=== PATIENT | male | born 1975 | race Caucasian/White ===

== ENCOUNTER 2024-12-25 | Emergency (ER) | payer BC, SELFPAY ==
--- OUTSIDE RECORDS SUMMARY | 2024-12-25 00:02 | XMS_ITS | Clinical Summary ---
Author Organization [facility] Address [address] [place] [id number] Care Team Providers Care Cop Breaker Name Role Phone Abhi Scott MD Primary Care Provider Kiara Perez MD Unavailable [phone] Olena Krueger NP Unavailable Allergies No known active allergies Medications ibuprofen (ADVIL; MOTRIN) 200 mg tablet Take 600 mg by mouth every 6 hours if needed. Active Insulin [place], Disposable, (BD INSULIN PEN NEEDLE UF MINI) 31 gauge x 3/16Indications :Uncontrolled type 2 diabetes mellitus with hyperglycemia, without long-term current use of insulin (HC) For administering insulin at home. 1 box 09/15/19 18 Active blood-glucose meterIndications :Uncontrolled type 2 diabetes mellitus with hyperglycemia, without long-term current use of insulin (HC) Dispense test strips, lancets covered by pt ins. E11.65 IDDM type II, uncontrolled - Test 4 times/day. Reason: High A1C. Given meter in [facility]. Ok to get meter if needs different kind for insurance preference. 1 Device 09/15/19 18 Active NOVOLIN 70/30 U-100 INSULIN 100 unit/mL (70-30) injectionIndicat ions:Diabetic ketoacidosis without coma associated with diabetes mellitus due to underlying condition (HC) INJECT 15 TO 30 UNITS SUBCUTANEOUSLY TWICE DAILY BEFORE MEALS 30 mL 04/11/20 18 Active insulin syringe-needle U-100 1/2 mL 31 gauge x 15/64 syrgIndications: Diabetic ketoacidosis without coma associated with diabetes mellitus due to underlying condition (HC) DIRECTED 200 Syringe 3 06/11/20 18 Active blood sugar diagnostic (ACCU-CHEK ELE PLUS TEST STRP) stripIndications :Controlled type 2 diabetes mellitus with complication, with long-term current use of insulin (HC) Dispense product covered by insurance. Test 4 times daily. E 11.8. Type 2 diabetes mellitus 400 Strip 3 11/27/19 19 Active Insulin Syringe-Needle U-100 0.5 mL 31 gauge x 01/16Indications :Controlled type 2 diabetes mellitus with complication, with long-term current use of insulin (HC) USE DIRECTED 1 box 11 07/27/20 19 Active apixaban (ELIQUIS) 5 mg tabletIndication s:Splenic infarct Take 1 Tablet (5 mg) by mouth two times daily. 60 Tablet 1 11/14/19 23 Active Active Problems Problem Noted Date Diagnosed Date Pseudocyst of pancreas 03/19/2017 Alcohol-induced acute pancre atitis without infection or necrosis 03/18/2017 Tobacco dependence 03/18/2017 Alcohol abuse 08/10/2016 Generalized anxiety disorder 05/14/2012 Major depression, single episode 06/08/2011 Resolved Problems Problem Noted Date Diagnosed Date Resolved Date Diabetic ketoacidosis withou t coma associated with type 2 diabetes mellitus 09/13/2017 10/07/2022 Hypokalemia 03/20/2017 09/13/2017 Idiopathic acute pancreatiti s without infection or necrosis 08/09/2016 09/13/2017 Other and unspecified alcoho l dependence, unspecified drinking behavior 05/14/2012 08/10/2016 Immunizations Immunization Administration Dates Next Due HIB PRP-OMP (PedvaxHIB) 10/06/2022 Influenza, IIV3 (Age 6-35 mos) 06/13/2010 MENINGOCOCCAL VACCINE 2 VIAL 2MO-55YO (MENVEO) 0 10/06/2022 Meningococcal B 10/06/2022 Pneumococcal Conj 20-valent (Prevnar 20) 023 Family History Medical History Relation Name Comments Diabetes Father Relation Name Status Comments Father Social History Tobacco Use Types Packs/Day Years Used Date Smoking Tobacco: Every Day Cigarettes 0.5 10 Smokeless Tobacco: Never Tobacco Cessation:Ready to Q uit: No; Counseling Given: Yes Comments:cutting down Alcohol Use Standard Drinks/Week Comments Yes 0 (1 standard drink = 0.6 oz pur e alcohol) 12 beers a day PHQ-2 Answer Date Recorded PHQ-2 TOTAL SCORE 0 10/06/2022 Social Connections Answer Date Recorded Frequency of Communication with Friends and Fami ly Not on file 09/18/2022 Financial Resource Strain Answer Date R ecorded Difficulty of Paying Living Expenses Not on file 09/03/2021 Difficulty of Paying Living Expenses Not on file 09/03/2021 Sex and Gender Information Value Date Recorded Sex Assigned at Not on file Legal Sex Male 7:04 AM PUMP OILER Gender Identity Not on file Sexual Orientation Not on file 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 Not on file Not on file Obstetrics History Last Filed Vital Signs Vital Sign Reading Time Taken Comments Blood Pressure 138/80 10/06/2022 11:23 AM PUMP OILER Pulse 88 10/06/2022 11:23 AM PUMP OILER Temperature 37.1 C (98.7 F) 10/06/2022 11:23 AM PUMP OILER Respiratory Rate 20 10/06/2022 11:23 AM PUMP OILER Oxygen Saturation 99% 2022 10:19 AM PUMP OILER Inhaled Oxygen Concentration - - Weight 73 kg (161 lb) 10/06/2022 11:23 AM PUMP OILER Height 180.3 cm (5' 11) 09/25/2022 3:24 PM PUMP OILER Body Mass Index 22.45 09/25/2022 3:24 PM PUMP OILER Plan of Treatment Health Maintenance Due Date Last Done Comments Tdap 1986 HIV for age 15-65 1990 Tetanus booster 1995 Colonoscopy through age 75 2020 Lipids for age 45-75 2020 BMI (ht and wt on same day) for age 18+ 09/25/2023 09/25/2022, 09/18/2022, 09/20/2017, Additional history exists Depression screening for age 12+ 10/06/2023 10/06/19, 11/01/2017 COVID-19 vaccine series ( season) 2024 06/23/2021, 06/01/2021 Influenza Vaccine (Season Ended) 2025 06/13/20 10 Hepatitis C screening for ag e 18-79 Completed 01/28/2010 Pneumococcal series for age 6-49 Completed 10/06/19 23 Procedures Procedure Name Priority Date/Time Associated Diagnosis Comments ANTI HCV Routine 01/28/2010 3:36 PM CDT Alcoholic gastritis without mention of hemorrhage from Last 3 Months or Most Recently Relevant to Health Maintenance Results * ANTI HCV (01/28/2010 3:36 PM CDT) ANTI HCV Non-reacti ve [facility] Blood specimen (specimen) BLOOD SPECIMEN / Unknown 01/28/2010 3:36 PM CDT 01/28/2010 3:28 PM CDT us Olena Vázquez MD SEND OUTS Final Result [facility] [place]NAL ZIP [id number] [address] from Last 3 Months or Most Recently Relevant to Health Maintenance Insurance [facility] Advance Directives * Full Code (Latest Code Status on File) Date Activated Date Inactivated Comments 09/13/2017 4:45 PM 09/15/2017 12:47 PM Question Answer Comments Code Status Discussion: Per Existing Order * Full Code Date Activated Date Inactivated Comments 03/18/2017 3:36 PM 03/20/2017 3:50 PM Question Answer Comments Code Status Discussion: Not Discussed * Full Code Date Activated Date Inactivated Comments 03/18/2017 1:36 PM 03/18/2017 3:36 PM Question Answer Comments Code Status Discussion: Discussed * Full Code Date Activated Date Inactivated Comments 08/09/2016 3:38 PM 08/12/2016 5:49 PM Question Answer Comments Code Status Discussion: Discussed Care Teams Cop Breaker Relationship Specialty Start Date End Date Abhi Scott MD [address] [facility] [place] [address] PCP - General Family Practice 09/15/17 Kiara Perez MD [address] [place] [address] Medical Oncologist Hematology and Oncology 09/27/22 Olena Krueger NP [address] [facility] [place] [id number] Nurse Practitioner Hematology and Oncology 09/27/22
[2024-12-25 00:06] VITALS: BP 190/100; PULSE 100; RESP 18; TEMP 36.8; O2SAT 99; BMI 23.7
[2024-12-25] MEDS: TETANUS-DIPHTHERIA TOXOIDS/PF 0.5 ML SYRINGE IM (00:46)
[2024-12-25 00:52] VITALS: BP 175/95; PULSE 91; RESP 18; TEMP 36.8; O2SAT 99
--- NOTE | 2024-12-25 00:54 | ED_ITS ---
HPI - General Adult General Chief complaint: Laceration/Wound Stated complaint: cut left middle finger Time Seen by Provider: 12/25/24 00:16 Source: patient Mode of arrival: ambulatory Limitations: no limitations History of Present Illness HPI narrative: 49-year-old male presents to the ED about an hour after he cut his finger on a glass rim of a candle trying to snuff in out. Unknown last tetanus shot. Tried applying pressure but the bleeding will not stop. Left 4th finger along the PIP palmar side. No difficulty moving finger, no loss of sensation. Does not take anticoagulants. Did not try any other interventions prior to coming to ED. Reports benign past medical history. No long-term medications, no allergies. ROS is notable for no other hematological, generalized, musculoskeletal or skin changes. Related Data Allergies Allergy/AdvReac Type Severity Reaction Status Date / Time No Known Drug Allergies Allergy Verified 12/25/24 00:09 [facility] Medical History Type 2 diabetes mellitus ?E11.9 - Type 2 diabetes mellitus without complications (ICD-10) Social History Smoking Status: Current every day smoker Second hand tobacco smoke exposure: No How often do you have a drink containing alcohol: 4 or more times a week How often do you have six or more drinks on one occasion: Daily or almost daily AUDIT-C Alcohol total score: 8 Non-prescribed substance use: denies use Exam Const: Vital Signs, click to edit/add: Vital Signs - 24 hr 12/25/24 00:06 12/25/24 00:52 Temperature 98.2 F 98.2 F Pulse Rate [Right Pulse Oximeter] 100 91 Respiratory Rate 18 18 Blood Pressure [Ri ght Upper Arm] 190/100 H 175/95 H Pulse Oximetry 99 99 Oxygen Delivery Me thod Room Air Room Air Documenting provider has reviewed patient's vital signs: yes Common normals: no apparent distress General appearance: cooperative and well kempt HENMT: Common normals: normocephalic Head and scalp: normocephalic Face and sinus: normal facial exam Eye: Common normals: conjunctivae normal General eye: normal appearance of both eyes Conjunctiva: conjunctiva(e) normal Resp: Common normals: normal respiratory effort Effort & inspection: able to speak in complete sentences Extremity: Other: Left wrist with normal range of motion. Hand move normally with no focal deficits. 1.5 cm wide by 1 cm tall parched area of laceration along left 4th finger palmar side PIP. Active bleeding noted. Flap style laceration, depth is into the muscular layer. No other fingers affected. Psych: Appearance: well kempt Attitude: engaged Activity/motor behavior: appropriate eye contact Skin: Narrative: Other than the laceration to the 4th finger, no other areas of injury noted. Course Course ED Course: 49-year-old male with laceration to left 4th finger. Overdue for tetanus, nothing was seen and state registry. TD updated tonight. Counseled patient that I could use Steri-Strips or glue but unfortunately because of his bleeding and across the joint these are unlikely to be successful. He then agreed to stitches. Verbal consent obtained. Procedure: Laceration repair; Area was cleansed with alcohol wipe, no signs of foreign body noted. Injected with 3 mL of 1% lidocaine without epinephrine with good anesthesia. A total of 6 simple interrupted 4-0 Ethilon sutures were placed along the length of the arch with good closure. Hemostatic following repair. Covered in antibiotic ointment, gauze wrap. Given a splint to wear at work for the next 24 hours, instructed on wound care. Counseled on Tylenol and ibuprofen as needed for discomfort, alarm symptoms reviewed that would warrant ED presentation. Patient verbalizes understanding and agreement. Vital Signs Vital signs: Initial Vital Signs Temperature 98.2 F 12/25/24 00:06 Temperature Source Temporal Artery Scan 12/25/24 00:06 Pulse Rate 100 12/25/24 00:06 Respiratory Rate 18 12/25/24 00:06 Blood Pressure 190/100 H 12/25/24 00:06 Blood Pressure Mean 130 H 12/25/24 00:06 Blood Pressure Position Sitting 12/25/24 00:06 Pulse Oximetry 99 12/25/24 00:06 Oxygen Delivery Method Room Air 12/25/24 00:06 Vital Signs Temperature 98.2 F 12/25/24 00:06 Pulse Rate 100 12/25/24 00:06 Respiratory Rate 18 12/25/24 00:06 Blood Pressure 190/100 H 12/25/24 00:06 Pulse Oximetry 99 12/25/24 00:06 Oxygen Delivery Method Room Air 12/25/24 00:06 Temperature 98.2 F 12/25/24 00:52 Pulse Rate 91 12/25/24 00:52 Respiratory Rate 18 12/25/24 00:52 Blood Pressure 175/95 H 12/25/24 00:52 Pulse Oximetry 99 12/25/24 00:52 Oxygen Delivery Method Room Air 12/25/24 00:52 Medications Administered Medications: Generic Name Dose Route Start Last Admin Trade Name Radha PRN Reason Stop Dose Admin Tetanus/Diphtheria Toxoids Adsorbed 0.5 ml 12/25/24 00:42 12/25/24 00:46 Tetanus-Diphtheria Toxoids/Pf 0.5 Ml Syringe IM 12/25/24 00:43 0.5 ml .ONCE ONE Administration Discharge Plan Discharge Clinical Impression: Laceration Patient Disposition: Home w/ Parent or Adult Condition: Improved Instructions: Care For Your Stitches (ED) Additional Instructions: As we discussed, it seem like your last tetanus shot was overdue, this was updated today. He will need to make an appointment in the clinic to have the stitches removed in 8-10 days. Try to leave the current dressing on for at least the next 12, preferably 24 hours. Try not to get the area wet for the next 12-24 hours. After 12-24 hours, wash gently and apply a new layer of antibiotic ointment, cover with a large Band-Aid or gauze ensuring that the sticky area does not adhere to any of the stitches or wound. You may remove the dressing after the 1st 12 hours to shower, then apply new dressing daily. Make sure to keep applying antibiotic ointment as it will keep the stitches softer and allow for more easy removal as well. For pain, recommend Tylenol 1000 mg every 6 hours and or ibuprofen 600 mg every 6 hours. Throbbing is normal, keep it elevated if this occurs. Activity Level: Activity as Tolerated Discharge Diet: Regular Follow Up/Referrals: Provider,Not a Local [Non-Staff] - Stand Alone Forms: MyHealth Info Instructions
[2024-12-25 00:55] VITALS: BP 175/95; PULSE 91; RESP 18; TEMP 36.8
--- OUTSIDE RECORDS SUMMARY | 2024-12-25 00:59 | XMS_ITS | Clinical Summary ---
Author Organization [facility] Address [address] [place] [id number] Care Team Providers Care Parts Order And Stock Clerk Name Role Phone Abhi Scott MD Primary Care Provider Kiara Perez MD Unavailable [phone] Olena Krueger NP Unavailable Allergies No known active allergies Medications ibuprofen (ADVIL; MOTRIN) 200 mg tablet Take 600 mg by mouth every 6 hours if needed. Active Insulin [place], Disposable, (BD INSULIN PEN NEEDLE UF MINI) [...] times/day. Reason: High A1C. Given meter in [facility]. 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 Not on file Not on file Obstetrics History Last Filed Vital Signs Vital Sign Reading Time Taken Comments Blood Pressure 138/80 10/06/2022 11:23 AM DIPPER OPERATOR Pulse 88 10/06/2022 11:23 AM DIPPER OPERATOR Temperature 37.1 C (98.7 F) 10/06/2022 11:23 AM DIPPER OPERATOR Respiratory Rate 20 10/06/2022 11:23 AM DIPPER OPERATOR Oxygen Saturation 99% 2022 10:19 AM DIPPER OPERATOR Inhaled Oxygen Concentration - - Weight 73 kg (161 lb) 10/06/2022 11:23 AM DIPPER OPERATOR Height 180.3 cm (5' 11) 09/25/2022 3:24 PM DIPPER OPERATOR Body Mass Index 22.45 09/25/2022 3:24 PM DIPPER OPERATOR Plan of Treatment Health Maintenance Due Date [...] 3:36 PM CDT) ANTI HCV Non-reacti ve [facility] Blood specimen (specimen) BLOOD SPECIMEN / Unknown 01/28/2010 3:36 PM CDT 01/28/2010 3:28 PM CDT us Olena Vázquez MD SEND OUTS Final Result [facility] [place] ZIP [id number] [address] from Last 3 Months or Most Recently Relevant to Health Maintenance Insurance [facility] Advance Directives * Full Code (Latest Code [...] Comments Code Status Discussion: Discussed Care Teams Parts Order And Stock Clerk Relationship Specialty Start Date End Date Abhi Scott MD [address] [facility] [address] PCP - General Family Practice 09/15/17 Kiara Perez MD 200 [place] [address] Medical Oncologist Hematology and Oncology 09/27/22 Olena Krueger NP [address] [facility] [place] [id number] Nurse Practitioner Hematology and Oncology 09/27/22
[2024-12-25] MEDS: LIDOCAINE 1% 5 ml (pf) 5 ML VIAL 3 ML SUBD (01:01)
== END 2024-12-25 01:02 | disposition home or self-care (01) ==
LOC: ED 00:57
PROVIDERS: Emergency Provider Family Medicine; PCP Family Medicine
DX: S61.213A Laceration without foreign body of left middle finger without damage to nail, initial encounter (principal); W25.XXXA Contact with sharp glass, initial encounter; Z23 Encounter for immunization
CPT/HCPCS: 12001; 90471; 90714; 99283